=== PATIENT | female | born 1975 | race Caucasian/White ===

== ENCOUNTER 2018-09-13 11:13 | Day surgery (SDC) | payer OTHER ==
[2018-09-13] MEDS ORDERED: Ketamine HCl 50 MG/ML IJ ONE (11:14)
[2018-09-13] MEDS ORDERED: Decadron 4 MG INJ IV ONE (11:14)
[2018-09-13] MEDS ORDERED: Xylocaine-Mpf 2% 5 Ml Vial IJ ONE (11:14)
[2018-09-13] MEDS ORDERED: DIPRIVAN 200 MG/20 ML IV ONE (11:14)
[2018-09-13] MEDS ORDERED: LIDOCAINE HCL 2% 100 MG/5 ML IJ ONE (11:14)
--- NOTE | 2018-09-13 13:36 | XRAY ---
Indication: C3-C5 MBB. Intraoperative fluoroscopy was provided for 9 seconds. 2 digital spot images submitted for interpretation demonstrates posterior needle tips along the expected course of the right C3-C5 nerve roots. Correlate with intraoperative findings/report. Incidental partially visualized C4-C7 anterior fixation plate/screws.
--- NOTE | 2018-09-13 13:38 | XRAY ---
9 seconds fluoroscopy time in surgery for right C3-C5 MBB.
[2018-09-13] MEDS ORDERED: Lactated Ringers 1,000 ML IV ONE (17:11)
== END 2018-09-13 13:22 | disposition home or self-care (01) ==
LOC: SDC-PAIN 11:13
PROVIDERS: ATTEND Psychiatry & Neurology Pain Medicine
DX: M47.812 Spondylosis without myelopathy or radiculopathy, cervical region (principal); Z79.899 Other long term (current) drug therapy; K21.9 Gastro-esophageal reflux disease without esophagitis; F41.8 Other specified anxiety disorders
CPT/HCPCS: 64490; 64491; 72040; 77002; J1100; J2704

== ENCOUNTER 2018-11-01 11:38 | Day surgery (SDC) | payer OTHER ==
[2018-11-01] MEDS ORDERED: Xylocaine-Mpf 2% 5 Ml Vial IJ ONE (11:39)
[2018-11-01] MEDS ORDERED: Decadron 4 MG INJ IV ONE (11:39)
[2018-11-01] MEDS ORDERED: DIPRIVAN 200 MG/20 ML IV ONE (11:39)
[2018-11-01] MEDS ORDERED: Lactated Ringers 1,000 ML IV ONE (13:33)
--- NOTE | 2018-11-01 13:36 | XRAY ---
10 seconds fluoroscopy time in surgery for left C3-C5 MBB.
--- NOTE | 2018-11-01 13:37 | XRAY ---
Indication: Left C3-C5 MBB. Intraoperative fluoroscopy was provided for 10 seconds. 2 digital spot images submitted for interpretation demonstrates posterior needle tips along the expected course of the left C3-C5 nerve roots. Correlate with intraoperative findings/report. Incidental partially visualized C4-C7 anterior fixation plate/screws and multiple dental amalgams
== END 2018-11-01 12:57 | disposition home or self-care (01) ==
LOC: SDC-PAIN 11:38
PROVIDERS: ATTEND Psychiatry & Neurology Pain Medicine
DX: M47.812 Spondylosis without myelopathy or radiculopathy, cervical region (principal); K21.9 Gastro-esophageal reflux disease without esophagitis; F41.8 Other specified anxiety disorders
CPT/HCPCS: 64490; 64491; 72040; 77002; J1100; J2704